=== PATIENT | male | born 1930 | race Caucasian/White ===

== ENCOUNTER 2017-05-12 16:35 | Outpatient (CLI) | payer OTHER ==
[2016-02-11 15:26] VITALS: BP 135/74
[2017-05-12 17:02] LABS: BASOPHILS % 0.5 (0.0-1.5); EOSINOPHILS % 0.6 % (0.0-6.8); MEAN CORPUSCULAR HEMOGLOBIN 32.2 pg (28.0-34.0); MEAN CORPUSCULAR VOLUME 92.6 fl (80.0-100.0); MONOCYTES % 5.7 % (0.0-11.0)
[2017-05-12 17:23] LABS: eGFR (African) > 60; eGFR (Non-African) 51
[2017-05-12 17:45] LABS: ANISOCYTOSIS 1+ (NEGATIVE)
== END 2017-05-12 16:36 ==
LOC: LAB 16:35
PROVIDERS: ATTEND Internal Medicine Cardiovascular Disease
DX: I48.0 Paroxysmal atrial fibrillation (principal); R55 Syncope and collapse
CPT/HCPCS: 36415; 80053; 85025

== ENCOUNTER 2017-11-18 15:51 | Emergency (ER) | payer OTHER ==
[2017-11-18 15:59] VITALS: BP 153/82
--- NOTE | 2017-11-18 16:16 | ED Physician Documentation ---
Epistaxis - HISTORIAN Historian: patient - HPI Stated Complaint: Epistaxis Chief Complaint: Nosebleed Onset: minutes Timing: better Location: left Severity: moderate Further Comments: yes (86 year old male patient presents with complaint of nose bleed which started 20 minutes ago. Patient states he could not get the bleeding stopped.) - ROS MS/SKIN/LYMPH: denies: excessive bruising, bleeding from gums, bleeding from GI , bleeding from , swollen glands, joint pain, other EYES/ENT: none GI/: denies: black stool, problems urinating, other CVS/RESP: denies: chest pain, difficulty breathing, other NEURO/PSYCH: denies: dizziness, anxiety, depression, other - PAST HX Past History: none Other History: cardiac disease, other (PPM/DFib) Allergies/Adverse Reactions: Allergies Allergy/AdvReac Type Severity Reaction Status Date / Time Penicillins Allergy Mild Rash Verified 11/18/17 15:58 sulfamethoxazole Allergy Unknown Rash Verified 11/18/17 15:58 [From Bactrim] trimethoprim [From Bactrim] Allergy Unknown Rash Verified 11/18/17 15:58 Home Medications: Ambulatory Orders Medication Instructions Recorded Furosemide 20 mg PO DAILY u2 04/17/13 Psyllium Seed [Metamucil] 1 tbsp PO DAILY 07/03/14 - SOCIAL HX Smoking History: non-smoker - FAMILY HX Family History: No - VITAL SIGNS Vital Signs: Vital Signs Temp Pulse Resp BP Pulse Ox 97.1 F L 68 16 153/82 94 11/18/17 15:51 11/18/17 15:51 11/18/17 15:51 11/18/17 15:51 11/18/17 15:51 - REVIEWED ASSESSMENTS Nursing Assessment Reviewed: Yes Vitals Reviewed: Yes Progress - Progress Progress: Scant bleeding noted on arrival. Afrin to bilateral nares; pressure held. No further bleeding while in ER. Anterior left nasal clot noted. Epistaxis Physical Exam - EXAM General Appearance: mild distress Nose: mucosa nml, fresh clots (L), active bleeding (L), minimal Eyes/Ears: eyes nml inspection, PERRL Mouth: lips nml, gums nml, pharynx nml Neuro/Psych: oriented x3, neuro intact, mood/affect nml, CN's nml as tested Respiratory: no resp distress, chest non-tender, breath sounds normal CVS: reg rate & rhythm, heart sounds normal, equal pulses, no murmur, no gallop , PMI nml, no JVD, no friction rub, 24 Skin: nml color, no skin rash Discharge Clincal Impression: Anterior epistaxis Referrals: Critsi Doss MD [Primary Care Provider] - 2 Days Additional Instructions: If bleeding restarts - hold firm pressure for 20 minutes Return to ER if unable to stop bleeding after holding pressure for 20 minutes. Condition: Stable Disposition: 01 HOME, SELF-CARE Decision to Admit: NO Decision Time: 16:15
== END 2017-11-18 16:15 | disposition home or self-care (01) ==
LOC: ED 15:51
DX: R04.0 Epistaxis (principal)
CPT/HCPCS: 99282